=== PATIENT | female | born 1990 | race Caucasian/White ===

== ENCOUNTER 2023-11-06 18:13 | Inpatient (IN) | payer MEDICAID, OTHER ==
[~2023-11-06] VITALS: Ht 152.4 cm; Wt 100.6 kg
[2023-11-06 19:34] LABS: Basophils # (auto) 0 10 ^3/uL (0-0.2); Basophils % (auto) 0.5 % (0.0-2.0); Eosinophils # (auto) 0.1 10 ^3/uL (0-0.8); Eosinophils % (auto) 1.3 % (0.0-7.0); Hematocrit 39.1 % (36.0-46.0); Lymphocytes # (auto) 2.2 10 ^3/uL (0.4-5.4); Lymphocytes % (auto) 33.3 % (10.0-50.0); Mean Corpuscular Hemoglobin 27.7 pg (28.0-32.0); Mean Corpuscular Hgb Conc. 33.2 g/dL (32.0-36.0); Mean Corpuscular Volume 83.4 fL (80.0-100.0); Monocytes # (auto) 0.5 10 ^3/uL (0-1.3); Monocytes % (auto) 8.2 % (0.0-12.0); Neutrophils # (auto) 3.8 10 ^3/uL (1.6-8.6); Neutrophils % (auto) 56.7 % (37.0-80.0); Nucleated Red Blood Cells % 0.1 %; Platelet Count (auto) 264 10^3/uL (140-450); Red Blood Cells 4.69 10^6/uL (4.0-5.20); Red Cell Distribution Width 13.7 % (11.8-14.3); White Blood Cell 6.6 10^3/uL (4.4-10.8)
[2023-11-06] MEDS: SODIUM CHLORIDE 0.9% 1,000 ML IV ONE (19:45)
[2023-11-06] MEDS: PANTOPRAZOLE 40 MG/10 ML VIAL INJ IV ONE (19:45)
[2023-11-06 20:07] LABS: Urine Bacteria FEW /hpf (None Seen); Urine Blood Negative /uL (Negative); Urine Clarity Clear (Clear); Urine Color Light-Yellow (Yellow); Urine Protein, UAD Negative (Negative); Urine Specific Gravity 1.019 (1.001-1.035); Urine Urobilinogen Normal (Negative); Urine WBC 2 /hpf (0 - 5)
[2023-11-06 20:14] LABS: Alanine Aminotransferase 21 U/L (7-40); Albumin 4.5 g/dL (3.2-4.8); Alkaline Phosphatase 88 U/L (46-116); Anion Gap 7 (5-15); Aspartate Aminotransferase 17 U/L (13-40); BUN/Creatinine Ratio 12.7 (10.0-20.0); Bilirubin, Total 0.5 mg/dL (0.2-1.0); Blood Urea Nitrogen 10 mg/dL (9-23); Calcium 9.5 mg/dL (8.7-10.4); Carbon Dioxide 24 mmol/L (20-30); Chloride 106 mmol/L (98-107); Glucose 89 mg/dL (74-106); Potassium 3.3 mmol/L (3.5-5.1); Sodium 137 mmol/L (136-145); Total Protein 7.3 g/dL (5.7-8.2)
[2023-11-06] MEDS: metroNIDAZOLE 500MG/100ML 100 ML IV ONE (21:00)
[2023-11-06 21:35] LABS: INR 1.03 (0.9-1.15); Partial Thromboplastin Time 29.3 SEC (24.5-34.5); Prothrombin Time 10.9 sec (9.3-11.8)
[2023-11-06] MEDS ORDERED: HYDROcodone-ACET 5/325MG TAB PO PRN (22:15)
[2023-11-07] MEDS: CIPROFLOXACIN HCL 500 MG TAB PO ONE (05:39)
[2023-11-07 06:19] VITALS: BP 138/80; PULSE 71; PULSE 77; RESP 16; RESP 20; TEMP 97.8; O2SAT 100; O2SAT 98
[2023-11-07 06:27] LABS: Chloride 108 mmol/L (98-107); Potassium 4.2 mmol/L (3.5-5.1); Sodium 135 mmol/L (136-145)
[2023-11-07] MEDS: metroNIDAZOLE 500MG/100ML 100 ML IV SCH (06:27)
[2023-11-07 06:28] LABS: Anion Gap 4 (5-15); Carbon Dioxide 23 mmol/L (20-30)
[2023-11-07 06:29] LABS: Calcium 9.7 mg/dL (8.7-10.4)
[2023-11-07 06:33] LABS: Blood Urea Nitrogen 7 mg/dL (9-23); Glucose 94 mg/dL (74-106)
[2023-11-07 06:35] LABS: BUN/Creatinine Ratio 8.8 (10.0-20.0)
[2023-11-07 06:50] LABS: Basophils # (auto) 0 10 ^3/uL (0-0.2); Basophils % (auto) 0.5 % (0.0-2.0); Eosinophils # (auto) 0.1 10 ^3/uL (0-0.8); Eosinophils % (auto) 1.2 % (0.0-7.0); Hematocrit 41.7 % (36.0-46.0); Hemoglobin 13.8 g/dL (12.2-16.2); Lymphocytes # (auto) 1.7 10 ^3/uL (0.4-5.4); Lymphocytes % (auto) 26.9 % (10.0-50.0); Mean Corpuscular Hemoglobin 27.9 pg (28.0-32.0); Mean Corpuscular Hgb Conc. 33.1 g/dL (32.0-36.0); Mean Corpuscular Volume 84.2 fL (80.0-100.0); Monocytes # (auto) 0.6 10 ^3/uL (0-1.3); Monocytes % (auto) 9.1 % (0.0-12.0); Neutrophils % (auto) 62.3 % (37.0-80.0); Nucleated Red Blood Cells % 0.1 %; Platelet Count (auto) 252 10^3/uL (140-450); Red Blood Cells 4.95 10^6/uL (4.0-5.20); Red Cell Distribution Width 13.8 % (11.8-14.3); White Blood Cell 6.5 10^3/uL (4.4-10.8)
[2023-11-07 08:09] VITALS: BP 120/75; PULSE 64; RESP 85; TEMP 98.3; O2SAT 97
[2023-11-07] MEDS: PANTOPRAZOLE 40 MG/10 ML VIAL INJ IV SCH (10:19)
[2023-11-07 12:13] VITALS: BP 124/80; PULSE 81; RESP 18; TEMP 98.7; O2SAT 99
[2023-11-07 16:41] VITALS: BP 116/69; PULSE 91; RESP 21; TEMP 98.2; O2SAT 98
[2023-11-07 20:00] VITALS: PULSE 99; RESP 18; O2SAT 96
[2023-11-07 21:00] VITALS: BP 107/76; PULSE 99; RESP 18; TEMP 98.1; O2SAT 96
[2023-11-08] VITALS (7 sets, daily range): BP systolic 99–128; BP diastolic 44–85; PULSE 64–77; RESP 17–20; TEMP 97.4–98.4; O2SAT 96–99
[2023-11-08] MEDS ORDERED: ACETAMINOPHEN 325 MG TAB PO PRN (07:00)
[2023-11-08] MEDS: ACETAMINOPHEN 325 MG TAB PO PRN (09:13)
[2023-11-08] MEDS: MILK OF MAGNESIA 30ML SUSP PO ONE ×2 (09:26)
[2023-11-08 11:32] LABS: Basophils # (auto) 0 10 ^3/uL (0-0.2); Basophils % (auto) 0.5 % (0.0-2.0); Eosinophils # (auto) 0.1 10 ^3/uL (0-0.8); Eosinophils % (auto) 1.1 % (0.0-7.0); Hematocrit 38.3 % (36.0-46.0); Hemoglobin 12.9 g/dL (12.2-16.2); Lymphocytes # (auto) 1.4 10 ^3/uL (0.4-5.4); Lymphocytes % (auto) 23.5 % (10.0-50.0); Mean Corpuscular Hemoglobin 28.1 pg (28.0-32.0); Mean Corpuscular Hgb Conc. 33.7 g/dL (32.0-36.0); Mean Corpuscular Volume 83.5 fL (80.0-100.0); Monocytes # (auto) 0.5 10 ^3/uL (0-1.3); Monocytes % (auto) 8.4 % (0.0-12.0); Neutrophils # (auto) 3.9 10 ^3/uL (1.6-8.6); Neutrophils % (auto) 66.5 % (37.0-80.0); Platelet Count (auto) 234 10^3/uL (140-450); Red Blood Cells 4.59 10^6/uL (4.0-5.20); Red Cell Distribution Width 14.1 % (11.8-14.3); White Blood Cell 5.9 10^3/uL (4.4-10.8)
[2023-11-08 11:45] LABS: Chloride 109 mmol/L (98-107); Sodium 139 mmol/L (136-145)
[2023-11-08 11:46] LABS: Anion Gap 6 (5-15); Carbon Dioxide 24 mmol/L (20-31)
[2023-11-08 11:47] LABS: Calcium 9.3 mg/dL (8.7-10.4)
[2023-11-08 11:51] LABS: Glucose 102 mg/dL (74-106)
[2023-11-08 11:52] LABS: BUN/Creatinine Ratio 9.5 (10.0-20.0); Blood Urea Nitrogen 7 mg/dL (9-23); Magnesium 1.8 mg/dL (1.6-2.6)
[2023-11-08 11:54] LABS: Phosphorus 1.8 mg/dL (2.4-5.1)
[2023-11-08] MEDS: GOLYTELY 4L KIT PO ONE (14:38)
[2023-11-08] MEDS: ONDANSETRON HCL 4 MG/2 ML VIAL IV PRN (18:36)
[2023-11-09 01:34] VITALS: BP 121/71; PULSE 86; RESP 17; TEMP 97.8; O2SAT 98
[2023-11-09] MEDS: MAGNESIUM CITRATE SOLUTION 300 ML BTL PO ONE (03:03)
[2023-11-09 05:00] VITALS: BP 120/72; PULSE 73; RESP 18; TEMP 98.1; O2SAT 100
[2023-11-09] MEDS ORDERED: MAGNESIUM CITRATE SOLUTION 300 ML BTL PO ONE (06:00)
[2023-11-09] MEDS ORDERED: GOLYTELY 4L KIT PO ONE (06:00)
[2023-11-09] MEDS ORDERED: DexAMETHasone SOD PHOS 10MG/1ML VIAL INJ ONE (07:42)
[2023-11-09] MEDS ORDERED: MEPERIDINE HCL (25 MG/ML) 1ML VIAL ONE (07:42)
[2023-11-09] MEDS ORDERED: MIDAZOLAM HCL 2MG/2ML 2ml VIAL (1mg/ml) ONE (07:42)
[2023-11-09] MEDS ORDERED: fentaNYL CITRATE 100 MCG/2 ML VL ONE (07:42)
[2023-11-09] MEDS ORDERED: KETAMINE 50mg/ML 1ml syringe ONE (07:50)
[2023-11-09] MEDS ORDERED: PROPOFOL 10 MG/ML 20 ML IV ONE (07:50)
[2023-11-09 08:03] VITALS: O2SAT 100
[2023-11-09] MEDS ORDERED: ONDANSETRON HCL 4 MG/2 ML VIAL IV ONE (08:15)
[2023-11-09] MEDS ORDERED: MORPHINE SULFATE 4 MG/ML SYR/VIAL IV PRN (08:15)
[2023-11-09] MEDS ORDERED: hydrALAZINE HCL 20 MG/ML VL IV PRN (08:15)
[2023-11-09] MEDS ORDERED: ePHEDrine SULFATE 50 MG/ML AMP IV PRN (08:15)
[2023-11-09] MEDS ORDERED: HYDROmorphone HCL 2 MG/ML VL/or syr IV PRN (08:15)
[2023-11-09] MEDS ORDERED: MIDAZOLAM HCL 2MG/2ML 2ml VIAL (1mg/ml) IV PRN (08:15)
[2023-11-09 09:00] VITALS: BP 139/92; PULSE 83; RESP 18; TEMP 98.1; O2SAT 98
[2023-11-09] MEDS ORDERED: METR-344 PO (09:45)
[2023-11-09] MEDS ORDERED: LEVO500T91 PO (09:45)
[2023-11-09 11:40] VITALS: BP 139/92; PULSE 83; RESP 18; TEMP 98.1; O2SAT 98
== END 2023-11-09 13:21 | disposition home or self-care (01) | DRG 249 ==
LOC: ER 18:13 → OVERFLOW 22:07 → EAST 11-07 06:00
PROVIDERS: ADMIT Nurse Practitioner; ATTEND Family Medicine
PROC: 0DBP8ZX Excision of Rectum, Via Natural or Artificial Opening Endoscopic, Diagnostic (ICD-10-PCS; 2023-11-09)
PROC: 0DBN8ZZ Excision of Sigmoid Colon, Via Natural or Artificial Opening Endoscopic (ICD-10-PCS; 2023-11-09)
PROC: 0DBG8ZX Excision of Left Large Intestine, Via Natural or Artificial Opening Endoscopic, Diagnostic (ICD-10-PCS; principal; 2023-11-09 07:41)
DX: K52.9 Noninfective gastroenteritis and colitis, unspecified (principal); E66.9 Obesity, unspecified; K64.8 Other hemorrhoids; Z68.41 Body mass index [BMI] 40.0-44.9, adult; G43.909 Migraine, unspecified, not intractable, without status migrainosus; K63.5 Polyp of colon
CPT/HCPCS: 36415; 74176; 80048; 80053; 81001; 81025; 82270; 83735; 84100; 85025; 85048; 85610; 85730; 86850; 86900; 86901; 87045; 87177; 87427; 87493; G0378; J1100; J2250; J2405; J2470; J2704; J3490

== ENCOUNTER → 2024-02-18 | Outpatient (CLI) | payer MEDICAID ==
[~2024-02-18] MED LIST: LEVO500T91 PO; METR-344 PO
[2024-02-18 09:22] LABS: Urine Bacteria None Seen /hpf (None Seen)
[2024-02-18 09:52] LABS: Basophils # (auto) 0 10 ^3/uL (0-0.2); Basophils % (auto) 0.5 % (0.0-2.0); Eosinophils # (auto) 0.1 10 ^3/uL (0-0.8); Eosinophils % (auto) 1.4 % (0.0-7.0); Hematocrit 40.8 % (36.0-46.0); Hemoglobin 13.6 g/dL (12.2-16.2); Lymphocytes # (auto) 1.7 10 ^3/uL (0.4-5.4); Lymphocytes % (auto) 27.2 % (10.0-50.0); Mean Corpuscular Hemoglobin 27.7 pg (28.0-32.0); Mean Corpuscular Hgb Conc. 33.3 g/dL (32.0-36.0); Mean Corpuscular Volume 83.2 fL (80.0-100.0); Monocytes # (auto) 0.4 10 ^3/uL (0-1.3); Monocytes % (auto) 6.8 % (0.0-12.0); Neutrophils # (auto) 3.9 10 ^3/uL (1.6-8.6); Neutrophils % (auto) 64.1 % (37.0-80.0); Nucleated Red Blood Cells % 0.1 %; Platelet Count (auto) 277 10^3/uL (140-450); Red Cell Distribution Width 13.8 % (11.8-14.3); White Blood Cell 6.1 10^3/uL (4.4-10.8)
[2024-02-18 10:18] LABS: Alanine Aminotransferase 27 U/L (7-40); Albumin 4.4 g/dL (3.2-4.8); Alkaline Phosphatase 100 U/L (46-116); Anion Gap 8 (5-15); Aspartate Aminotransferase 18 U/L (13-40); BUN/Creatinine Ratio 9.3 (10.0-20.0); Bilirubin, Total 0.3 mg/dL (0.2-1.0); Carbon Dioxide 25 mmol/L (20-31); Cholesterol 158 mg/dL (< 200); Glucose 94 mg/dL (74-106); HDL Cholesterol 55 mg/dL (40-59); Potassium 4.2 mmol/L (3.5-5.1); Sodium 140 mmol/L (136-145); Total Protein 7.3 g/dL (5.7-8.2); Triglycerides 65 mg/dL (< 150)
[2024-02-18 10:36] LABS: Blood Urea Nitrogen 7 mg/dL (9-23); Chloride 107 mmol/L (98-107); LDL Cholesterol 101 mg/dL (< 100)
[2024-02-18 11:07] LABS: Urine Blood Negative /uL (Negative); Urine Clarity Clear (Clear); Urine Color Light-Yellow (Yellow); Urine Protein, UAD Negative (Negative); Urine Specific Gravity 1.022 (1.001-1.035); Urine Squamous Epithelial Cell FEW /hpf (<5); Urine Urobilinogen Normal (Negative); Urine WBC <1 /hpf (0 - 5)
== END | disposition home or self-care (01) ==
LOC: LAB 09:03
PROVIDERS: ATTEND Internal Medicine
DX: E03.9 Hypothyroidism, unspecified (principal); E13.9 Other specified diabetes mellitus without complications
CPT/HCPCS: 36415; 80053; 80061; 81001; 82306; 83036; 83880; 84443; 85025

== ENCOUNTER → 2024-04-09 | Outpatient (CLI) | payer MEDICAID ==
[2024-04-09 09:19] VITALS: BP 111/73; PULSE 72; RESP 17
--- NOTE | 2024-04-09 13:28 | DVHCARD ---
Cardiology Stress Test [place] Treadmill Stress Test [place] Referring MD: MD Kareem Protocol: Robby (without cardiolite) Reason for referral: Chest Pain Target heart Rate:@85%: 158 Percent MPHR: 187 METS: 10.40 Resting Heart rate: 72 Resting Blood Pressure: 111/73 Exercise Heart Rate: 179 Exercise Blood Pressure: 149/65 Baseline EKG: Normal sinus rhythm Stress EKG: Sinus tachycardia Functional Capacity: Good Normal Heart Rate Response: Adequate Blood Pressure Response: Hypertensive Clinical response: Non-ischemic Arrhythmia?: No Cardiolite Injected?: No ST-T Changes: Non/Minimal Probability of Inducible Ische: Low Date of Service: Apr 09, 2024 Billing Provider: SAVANNAH LYNCH Cardiology Common Codes: PROCEDURE ONLY Treadmill w/o Cardiolite: [id number], INTERP, RPT SAVANNAH LYNCH Apr 09, 2024 13:27
--- NOTE | 2024-04-10 12:39 | DVHCARD ---
Cardiology Stress Test [place] Treadmill Stress Test [place] Referring MD: MD Kareem Protocol: Robby Reason for referral: Chest Pain Target heart Rate:@85%: 158 Percent MPHR: 187 METS: 10.40 Resting Heart rate: 72 Resting Blood Pressure: 111/73 Exercise Heart Rate: 179 Exercise Blood Pressure: 149/65 Baseline EKG: Normal sinus rhythm Stress EKG: Sinus tachycardia Functional Capacity: Good Normal Heart Rate Response: Adequate Blood Pressure Response: Hypertensive Clinical response: Non-ischemic Arrhythmia?: No Cardiolite Injected?: No ST-T Changes: Non/Minimal Probability of Inducible Ische: Low Comments: no ecg evidence of ischemia, normal treadmill response Date of Service: Apr 10, 2024 Billing Provider: TAY MILES MD Cardiology Common Codes: NOT BILLABLE TAY MILES MD Apr 10, 2024 12:39
== END | disposition home or self-care (01) ==
LOC: XYW 08:27
PROVIDERS: ATTEND Internal Medicine
DX: R00.0 Tachycardia, unspecified (principal); R07.9 Chest pain, unspecified; R06.02 Shortness of breath; E78.5 Hyperlipidemia, unspecified; F32.A Depression, unspecified
CPT/HCPCS: 93017

== ENCOUNTER 2024-05-19 18:13 | Emergency (ER) | payer MEDICAID ==
[~2024-05-19] VITALS: Ht 152.4 cm; Wt 98.7 kg
[~2024-05-19 18:13] MED LIST changes: +OMEP20TA PO
[2024-05-19 18:33] VITALS: TEMP 99.1
--- NOTE | 2024-05-19 22:35 | DVH ---
CLINICAL INDICATION: TECHNIQUE: XY FACIAL BONES COMPLETE Comparison: None FINDINGS: IMPRESSION: No abnormality demonstrated.
[2024-05-19] MEDS ORDERED: AUG875T PO (22:57)
--- NOTE | 2024-05-19 22:57 | ED.PDOC ---
Back pain HPI HPI Comments Reports left jaw pain that shoots up to her left ear since 1030 today. States pain started while she was earing a sandwich. Some swelling noted to the left side of her face. He has numbness or weakness or any other known injury Chief Complaint: Jaw Pain Time Seen by MD: 18:41 Primary Care Provider: allyn Segovia Notes: Nurses Notes, Medications, Allergies Allergies: Coded Allergies: NO KNOWN ALLERGIES (Unverified , 11/06/23) Home Meds Active Scripts Amoxicillin & Pot Clavulanate (AUGMENTIN TABLET) 875 Mg Tb, 875 MG PO BID for 7 Days, #14 TAB Prov:MITALI GOMEZ [employer] 05/19/24 Omeprazole (Gnp Omeprazole) 20 Mg Tab, 1 TAB PO DAILY for 30 Days, #30 TAB 3 Refills Prov:CHANTELL RODRIGUEZ 04/30/24 Levofloxacin Hemihydrate (LEVAQUIN 500 MG) 500 Mg Tab, 1 TAB PO DAILY, #7 TAB Prov:TAYE PAPPAS MD 11/09/23 Metronidazole (Flagyl) 500 Mg Tab, 1 TAB PO TID, #30 TAB Prov:TAYE PAPPAS MD 11/09/23 Information Source: Patient Mode of Arrival: Ambulatory Past Medical History PAST MEDICAL HISTORY: Denies Surgical History: Denies all surgeries J[employer]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 Family History Family History: Reviewed,noncontributory to illness Social History Smoker: Non-Smoker Alcohol: Denies ETOH Use Drugs: Denies Drug Use Constitutional: denies: chills, diaphoresis, fatigue, fever, malaise, sweats, weakness, others EENTM: denies: blurred vision, double vision, ear bleeding, ear discharge, ear drainage, ear pain, ear ringing, eye pain, eye redness, hearing loss, mouth pain, mouth swelling, nasal discharge, nose bleeding, nose congestion, nose pain, photophobia, tearing, throat pain, throat swelling, voice changes, others Respiratory: denies: cough, hemoptysis, orthopnea, SOB at rest, shortness of breath, SOB with excertion, stridor, wheezing, others Cardiovascular: denies: chest pain, dizzy spells, diaphoresis, Dyspnea on exertion, edema, irregular heart beat, left arm pain, lightheadedness, palpitations, PND, syncope, others Gastrointestinal: denies: abdomen distended, abdominal pain, blood streaked bowels, constipated, diarrhea, dysphagia, difficulty swallowing, hematemesis, melena, nausea, poor appetite, poor fluid intake, rectal bleeding, rectal pain, vomiting, others Genitourinary: denies: abnormal vagina bleeding, burning, dyspareunia, dysuria, flank pain, frequency, hematuria, incontinence, pain, , vagina discharge, urgency, others Neurological: denies: dizziness, fainting, headache, left sided numbness, left sided weakness, numbness, paresthesia, pre-existing deficit, right sided numbness, right sided weakness, seizure, speech problems, tingling, tremors, weakness, others Musculoskeletal: reports: others (Left side jaw pain); denies: back pain, gout, joint pain, joint swelling, muscle pain, muscle stiffness, neck pain Integumetry: denies: bruises, change in color, change in hair/nails, dryness, laceration, lesions, lumps, rash, wounds, others Allergic/Immunocompromised: denies: Difficulty Healing, Frequent Infections, Hives, Itching, others Hematologic/Lymphatic: denies: anemia, blood clots, easy bleeding, easy bruising, swollen glands, others Endocrine: denies: excessive hunger, excessive sweating, excessive thirst, excessive urination, flushing, intolerance to cold, intolerance to heat, unexplained weight gain, unexplained weight loss, others Psychiatric: denies: anxiety, bipolar disorder, depression, hopeless, panic disorder, schizophrenia, sleepless, suicidal, others Physical Exam General Appearance: No Apparent Distress, Normal HEENT: Normal ENT Inspection, Pharynx Normal, TMs Normal, Other (Male tenderness palpated under left side lower jaw no noted adenopathy lesions or abrasions no noted swelling or erythema) Neck: Full Range of Motion, Non-Tender, Normal, Normal Inspection Respiratory: Chest Non-Tender, Lungs Clear, No Accessory Muscle Use, No Respira tory Distress, Normal Breath Sounds Cardiovascular: No Edema, No JVD, No Murmur, No Gallop, Normal Peripheral Pulses, Regular Rate/Rhythm Breast Exam: Deferred Gastrointestinal: No Organomegaly, Non Tender, Soft Genitalia: Deferred Pelvic: Deferred Rectal: Deferred Extremities: Normal capillary refill, Normal inspection, Normal range of motion, Non-tender, No pedal edema Musculoskeletal : Apperance: Normal Neurologic: Alert, jewelry consultant II-XII nml as Tested, No Motor Deficits, Normal Affect, Normal Mood, No Sensory Deficits Cerebellar Function: Normal Reflexes: Normal Skin: Dry, Normal Color, Warm Lymphatic: No Adenopathy Was a procedure done? Was a procedure done?: No Back Pain Differential Dx Differential Diagnosis: Fracture, Musculoskeletal Pain, Strain X-Ray, Labs, Meds, VS Vital Signs Date Time Temp Pulse Resp B/P (MAP) Pulse Ox O2 Delivery O2 Flow Rate FiO2 05/19/24 23:33 67 10 139/90 (106) 97 05/19/24 18:33 99.1 113 20 144/74 (97) 98 99.1 X-Ray, Labs, Meds, VS Comment Facial bones x-ray shows no acute fractures osseous lesions or dislocations. We will start of salivary gland infection/cysts. Trial dose of antibiotics script to the pharmacy. Take medications as prescribed. [id number] Tylenol or Motrin as needed for the pain. Advised patient to follow up with her PCP in 1-2 days. ER return precautions given patient indicates understanding agrees with discharge plan of care. Time of 1ST Reevaluation: 22:51 Reevaluation 1ST: Improved Patient Education/Counseling: Diagnosis, Treatment, Prognosis, Need For Follow Up Family Education/Counseling: No Family Present Departure 1 Departure Time of Disposition: 22:56 Impression: Primary Impression: Jaw pain Disposition: HOME / SELF CARE / HOMELESS Condition: Stable e-Prescriptions Amoxicillin & Pot Clavulanate (AUGMENTIN TABLET) 875 Mg Tb 875 MG PO BID for 7 Days, #14 TAB Prov: MITALI GOMEZ 05/19/24 Discharged With: Self Critical Care Note Critical Care Time?: No Stability Stability form required: MITALI Souza May 19, 2024 22:57
[2024-05-19] MEDS: KETOROLAC TROMETH 60MG/2ML VIAL IM ONE (23:14)
[2024-05-19 23:33] VITALS: BP 139/90; PULSE 67; RESP 10; O2SAT 97
== END 2024-05-19 23:34 | disposition home or self-care (01) ==
LOC: ER 18:13
DX: R68.84 Jaw pain (principal); R20.0 Anesthesia of skin; R22.0 Localized swelling, mass and lump, head
CPT/HCPCS: 96372; 99283; J1885

== ENCOUNTER → 2024-06-04 | Outpatient (CLI) | payer MEDICAID ==
[2024-06-04 11:35] LABS: Anion Gap 7 (5-15); Calcium 9.8 mg/dL (8.7-10.4); Carbon Dioxide 24 mmol/L (20-31); Chloride 106 mmol/L (98-107); Potassium 4.1 mmol/L (3.5-5.1); Sodium 137 mmol/L (136-145)
[2024-06-04 11:41] LABS: BUN/Creatinine Ratio 12.5 (10.0-20.0); Blood Urea Nitrogen 10 mg/dL (9-23); Glucose 85 mg/dL (74-106)
[2024-06-04 11:42] LABS: CRP High Sensitivity 0.69 mg/dL (<1.0)
[2024-06-04 12:19] LABS: Erythrocyte Sedimentation Rate 11 mm/hr (0-20)
== END | disposition home or self-care (01) ==
LOC: LAB 10:41
PROVIDERS: ATTEND Internal Medicine
DX: R06.02 Shortness of breath (principal); R07.9 Chest pain, unspecified
CPT/HCPCS: 36415; 80048; 85652; 86038; 86141

== ENCOUNTER 2024-07-04 18:57 | Emergency (ER) | payer MEDICAID ==
[~2024-07-04] VITALS: Ht 152.4 cm; Wt 93.3 kg
--- NOTE | 2024-07-04 19:38 | ED.PDOC ---
GI ASSESSMENT HPI Comments 34-year-old female who came to ER for of the abdominal pain. Patient states she has been having abdominal pain since yesterday, epigastric, sharp, cramping, intermittent, nonradiating, associated with bouts of nausea and vomiting. States she could not keep anything in. Denies any possibility of Chief Complaint: Abdominal Pain Time Seen by MD: 19:37 Primary Care Provider: allyn Segovia Notes: Nurses Notes Allergies: Coded Allergies: NO KNOWN ALLERGIES (Unverified , 11/06/23) Home Meds Active Scripts Diphenoxylate W/ Atropine (Lomotil) 2.5 Mg Tab, 1 TAB PO QID PRN, #20 TAB Prov:NINI GARRISON MD 07/04/24 Famotidine (PEPCID TABLET) 20 Mg Tb, 1 TAB PO BID PRN, #60 TAB 5 Refills Prov:NINI GARRISON MD 07/04/24 Ondansetron HCl (Ondansetron Hydrochloride) 8 Mg Tab, 8 MG PO Q6HP PRN, #30 TAB Prov:NINI GARRISON MD 07/04/24 Omeprazole (Gnp Omeprazole) 20 Mg Tab, 1 TAB PO DAILY for 30 Days, #30 TAB 3 Refills Prov:CHANTELL RODRIGUEZ 04/30/24 Levofloxacin Hemihydrate (LEVAQUIN 500 MG) 500 Mg Tab, 1 TAB PO DAILY, #7 TAB Prov:TAYE PAPPAS MD 11/09/23 Metronidazole (Flagyl) 500 Mg Tab, 1 TAB PO TID, #30 TAB Prov:TAYE PAPPAS MD 11/09/23 Information Source: Patient Mode of Arrival: Ambulatory Timing: Minutes Duration: Since onset Prehospital treatment: None Quality: Cramping, Sharp Vomitus: Watery Stool: Normal Severity: Moderate Recent: Possible spoiled food Recent Hx of: Abdominal Surgery Pain Location: Epigastric Associated sign and symptoms: Nausea, Vomiting, Abdominal Pain Past Medical History PAST MEDICAL HISTORY: Denies Surgical History: BTL, ROUND UP RING HAND History: No Pertinent ROUND UP RING HAND History Family History Family History: Reviewed,noncontributory to illness Social History Smoker: Non-Smoker Alcohol: Denies ETOH Use Drugs: Denies Drug Use Lives In: Home Constitutional: denies: chills, diaphoresis, fatigue, fever, malaise, sweats, weakness, others EENTM: denies: blurred vision, double vision, ear bleeding, ear discharge, ear drainage, ear pain, ear ringing, eye pain, eye redness, hearing loss, mouth pain, mouth swelling, nasal discharge, nose bleeding, nose congestion, nose pain, photophobia, tearing, throat pain, throat swelling, voice changes, others Respiratory: denies: cough, hemoptysis, orthopnea, SOB at rest, shortness of breath, SOB with excertion, stridor, wheezing, others Cardiovascular: denies: chest pain, dizzy spells, diaphoresis, Dyspnea on exertion, edema, irregular heart beat, left arm pain, lightheadedness, palpitations, PND, syncope, others Gastrointestinal: reports: abdominal pain, nausea, vomiting; denies: abdomen distended, blood streaked bowels, constipated, diarrhea, dysphagia, difficulty swallowing, hematemesis, melena, poor appetite, poor fluid intake, rectal bleeding, rectal pain, others Genitourinary: denies: abnormal vagina bleeding, burning, dyspareunia, dysuria, flank pain, frequency, hematuria, incontinence, pain, , vagina discharge, urgency, others Neurological: denies: dizziness, fainting, headache, left sided numbness, left sided weakness, numbness, paresthesia, pre-existing deficit, right sided numbness, right sided weakness, seizure, speech problems, tingling, tremors, weakness, others Musculoskeletal: denies: back pain, gout, joint pain, joint swelling, muscle pain, muscle stiffness, neck pain, others Integumetry: denies: bruises, change in color, change in hair/nails, dryness, laceration, lesions, lumps, rash, wounds, others Allergic/Immunocompromised: denies: Difficulty Healing, Frequent Infections, Hives, Itching, others Hematologic/Lymphatic: denies: anemia, blood clots, easy bleeding, easy bru ising, swollen glands, others Endocrine: denies: excessive hunger, excessive sweating, excessive thirst, e xcessive urination, flushing, intolerance to cold, intolerance to heat, unexplained weight gain, unexplained weight loss, others Psychiatric: denies: anxiety, bipolar disorder, depression, hopeless, panic disorder, schizophrenia, sleepless, suicidal, others Physical Exam General Appearance: No Apparent Distress, Normal HEENT: Normal ENT Inspection, Pharynx Normal, TMs Normal Neck: Full Range of Motion, Non-Tender, Normal, Normal Inspection Respiratory: Chest Non-Tender, Lungs Clear, No Accessory Muscle Use, No Re spiratory Distress, Normal Breath Sounds Cardiovascular: No Edema, No JVD, No Murmur, No Gallop, Normal Peripheral Pulses, Regular Rate/Rhythm Breast Exam: Deferred Gastrointestinal: Epigastric, No Organomegaly, No Pulsatile Mass, Normal Bowel Sounds, Soft, Tenderness Genitalia: Deferred Pelvic: Deferred Rectal: Deferred Extremities: No calf tenderness, Normal capillary refill, Normal inspection, Normal range of motion, Non-tender, No pedal edema Musculoskeletal : Apperance: Normal Neurologic: Alert, police surgeon II-XII nml as Tested, No Motor Deficits, Normal Affect, Normal Mood, No Sensory Deficits Cerebellar Function: Normal Reflexes: Normal Skin: Dry, Normal Color, Warm Lymphatic: No Adenopathy Was a procedure done? Was a procedure done?: No GI differential Dx Differential Diagnosis: Diverticular disease, Gastritis/PUD, Gastroenteritis, Pancreatitis, UTI, Dehydration X-Ray, Labs, Meds, VS Vital Signs Date Time Temp Pulse Resp B/P (MAP) Pulse Ox O2 Delivery O2 Flow Rate FiO2 07/04/24 22:46 98.3 80 19 123/70 (87) 97 98.3 07/04/24 21:50 80 19 123/70 07/04/24 20:57 113 18 114/70 07/04/24 20:30 98.2 113 18 114/70 (85) 100 98.2 07/04/24 20:30 113 18 100 Room Air* 0 21 07/04/24 19:27 97.7 120 20 125/102 (110) 99 97.7 Lab Test 07/04/24 19:47 Range/Units White Blood Count 14.5 H 4.4-10.8 10^3/uL Red Blood Count 5.66 H 4.0-5.20 10^6/uL Hemoglobin 15.5 12.2-16.2 g/dL Hematocrit 46.9 H 36.0-46.0 % Mean Corpuscular Volume 82.9 80.0-100.0 fL Mean Corpuscular Hemoglobin 27.4 L 28.0-32.0 pg Mean Corpuscular Hemoglobin Concent 33.0 32.0-36.0 g/dL Red Cell Distribution Width 13.4 11.8-14.3 % Platelet Count 308 140-450 10^3/uL Mean Platelet Volume 8.2 6.9-10.8 fL Neutrophils (%) (Auto) 83.6 H 37.0-80.0 % Lymphocytes (%) (Auto) 11.0 10.0-50.0 % Monocytes (%) (Auto) 5.2 0.0-12.0 % Eosinophils (%) (Auto) 0.0 0.0-7.0 % Basophils (%) (Auto) 0.2 0.0-2.0 % Neutrophils # (Auto) 12.1 H 1.6-8.6 10 ^3/uL Lymphocytes # (Auto) 1.6 0.4-5.4 10 ^3/uL Monocytes # (Auto) 0.8 0-1.3 10 ^3/uL Eosinophils # (Auto) 0 0-0.8 10 ^3/uL Basophils # (Auto) 0 0-0.2 10 ^3/uL Nucleated Red Blood Cells 0.0 % Sodium Level 140 136-145 mmol/L Potassium Level 4.0 3.5-5.1 mmol/L Chloride Level 103 98-107 mmol/L Carbon Dioxide Level 24 20-31 mmol/L Anion Gap 13 5-15 Blood Urea Nitrogen 14 9-23 mg/dL Creatinine 0.85 0.550-1.02 mg/dL Glomerular Filtration Rate Calc 92 >90 mL/min BUN/Creatinine Ratio 16.5 10.0-20.0 Serum Glucose 101 74-106 mg/dL Calcium Level 10.3 8.7-10.4 mg/dL Total Bilirubin 0.8 0.2-1.0 mg/dL Aspartate Amino Transferase (AST) 15 13-40 U/L Alanine Aminotransferase (ALT) 18 7-40 U/L Alkaline Phosphatase 107 46-116 U/L Total Protein 8.3 H 5.7-8.2 g/dL Albumin 5.3 H 3.2-4.8 g/dL Lipase 61 H 12-53 U/L Beta HCG, Quantitative 0.3 L 1.5-4.2 mIU/mL Current Medications Medications (Trade) Dose Ordered Sig/Fela Route Start Time Stop Time Status Last Admin Sodium Chloride 1,000 ml @ 1,000 mls/hr Q1H ONCE IVB 07/04/24 19:30 07/04/24 20:29 DC 07/04/24 20:44 Ondansetron HCl (Zofran) 4 mg ONCE ONCE IV 07/04/24 19:30 07/04/24 19:31 DC 07/04/24 20:44 Famotidine (Pepcid Injection) 20 mg ONCE ONCE IV 07/04/24 19:30 07/04/24 19:31 DC 07/04/24 20:44 Morphine Sulfate 4 mg ONCE ONCE IV 07/04/24 21:00 07/04/24 21:01 DC 07/04/24 20:57 Time of 1ST Reevaluation: 19:35 Reevaluation 1ST: Unchanged Patient Education/Counseling: Diagnosis, Treatment Family Education/Counseling: No Family Present Departure 1 Departure Time of Disposition: 21:30 Impression: Primary Impression: Abdominal cramping Additional Impression: Nausea and vomiting Disposition: 01 HOME / SELF CARE / HOMELESS Condition: Stable e-Prescriptions Diphenoxylate W/ Atropine (Lomotil) 2.5 Mg Tab 1 TAB PO QID PRN, #20 TAB Prov: NINI GARRISON MD 07/04/24 Famotidine (PEPCID TABLET) 20 Mg Tb 1 TAB PO BID PRN, #60 TAB 5 Refills Prov: NINI GARRISON MD 07/04/24 Ondansetron HCl (Ondansetron Hydrochloride) 8 Mg Tab 8 MG PO Q6HP PRN, #30 TAB Prov: NINI GARRISON MD 07/04/24 Discharged With: Self Critical Care Note Critical Care Time?: No Stability Stability form required: No Heart Score Heart Score: Heart Score Response (Comments) Value History N/A 0 EKG N/A 0 Age N/A 0 Risk Factors N/A 0 Troponin N/A 0 Total 0 I personally scribed for NINI GARRISON MD ([email or web address]) on 07/04/24 at 19:38. Electronically submitted by Kory Jose ([email or web address]). NINI GARRISON MD July 04, 2024 19:38
[2024-07-04 20:06] LABS: Basophils # (auto) 0 10 ^3/uL (0-0.2); Basophils % (auto) 0.2 % (0.0-2.0); Eosinophils # (auto) 0 10 ^3/uL (0-0.8); Hematocrit 46.9 % (36.0-46.0); Hemoglobin 15.5 g/dL (12.2-16.2); Lymphocytes # (auto) 1.6 10 ^3/uL (0.4-5.4); Mean Corpuscular Hemoglobin 27.4 pg (28.0-32.0); Mean Corpuscular Volume 82.9 fL (80.0-100.0); Monocytes # (auto) 0.8 10 ^3/uL (0-1.3); Monocytes % (auto) 5.2 % (0.0-12.0); Neutrophils # (auto) 12.1 10 ^3/uL (1.6-8.6); Neutrophils % (auto) 83.6 % (37.0-80.0); Platelet Count (auto) 308 10^3/uL (140-450); Red Blood Cells 5.66 10^6/uL (4.0-5.20); Red Cell Distribution Width 13.4 % (11.8-14.3); White Blood Cell 14.5 10^3/uL (4.4-10.8)
[2024-07-04 20:19] LABS: Alanine Aminotransferase 18 U/L (7-40); Alkaline Phosphatase 107 U/L (46-116); Anion Gap 13 (5-15); Aspartate Aminotransferase 15 U/L (13-40); BUN/Creatinine Ratio 16.5 (10.0-20.0); Bilirubin, Total 0.8 mg/dL (0.2-1.0); Blood Urea Nitrogen 14 mg/dL (9-23); Calcium 10.3 mg/dL (8.7-10.4); Carbon Dioxide 24 mmol/L (20-31); Chloride 103 mmol/L (98-107); Glucose 101 mg/dL (74-106); Sodium 140 mmol/L (136-145)
[2024-07-04 20:21] LABS: Albumin 5.3 g/dL (3.2-4.8); Lipase 61 U/L (12-53); Total Protein 8.3 g/dL (5.7-8.2)
[2024-07-04 20:30] VITALS: PULSE 113; RESP 18; O2SAT 100
[2024-07-04] MEDS: FAMOTIDINE (10MG/ML) 2ML VL IV ONE (20:44)
[2024-07-04] MEDS: SODIUM CHLORIDE 0.9% 1,000 ML IVB ONE (20:44)
[2024-07-04] MEDS: ONDANSETRON HCL 4 MG/2 ML VIAL IV ONE (20:44)
[2024-07-04] MEDS: MORPHINE SULFATE 4 MG/ML SYR/VIAL IV ONE (20:57)
--- NOTE | 2024-07-04 21:59 | DVH ---
ABDOMINAL ULTRASOUND CLINICAL HISTORY: abd pain TECHNIQUE: Multiple grayscale and color Doppler ultrasound images were obtained of the abdomen. WID: COMPARISON: None FINDINGS: Liver and Biliary System: Homogeneous echotexture, normal size measuring 12.84 cm. No focal hepati c observations. No intrahepatic bile duct dilatation. The common duct measures 0. 4 cm at the maximus hepatis. The gallbladder is normal caliber with borderline wall thickening measuring 3.4 mm. Pancreas: Visualized portions are unremarkable. Kidneys: The right kidney is 10.3 cm . No hydronephrosis, increased echogenicity, shadowing stone, or focal lesion. IMPRESSION: Normal caliber gallbladder with borderline wall thickening. Sonographic headley's sign is negative, g oing against acute cholecystitis.
[2024-07-04] MEDS ORDERED: ONDA-180 PO (22:08)
[2024-07-04] MEDS ORDERED: FAMO20TA10 PO (22:08)
[2024-07-04] MEDS ORDERED: DIPH2.5T73 PO (22:08)
[2024-07-04 22:46] VITALS: BP 123/70; PULSE 80; RESP 19; TEMP 98.3; O2SAT 97
== END 2024-07-04 22:50 | disposition home or self-care (01) ==
LOC: ER 18:57
DX: R10.84 Generalized abdominal pain (principal); R11.2 Nausea with vomiting, unspecified; Z79.899 Other long term (current) drug therapy; Z98.51 Tubal ligation status
CPT/HCPCS: 36415; 76705; 80053; 83690; 84702; 85025; 96361; 96374; 96375; 99285; J2270; J2405; J3490; J7030

== ENCOUNTER 2024-11-21 11:01 | Day surgery (SDC) | payer MEDICAID ==
[2024-11-14 11:32] LABS: Hematocrit 39.3 % (36.0-46.0); Hemoglobin 13.1 g/dL (12.2-16.2); Mean Corpuscular Hemoglobin 27.9 pg (28.0-32.0); Mean Corpuscular Volume 84.0 fL (80.0-100.0); Nucleated Red Blood Cells % 0.0 %
[2024-11-14 11:33] LABS: Urine Protein, UAD Negative (Negative)
[2024-11-14 11:48] LABS: Alanine Aminotransferase 17 U/L (7-40); Albumin 4.5 g/dL (3.2-4.8); Alkaline Phosphatase 73 U/L (46-116); Anion Gap 9 (5-15); BUN/Creatinine Ratio 15.1 (10.0-20.0); Bilirubin, Total 0.6 mg/dL (0.2-1.0); Blood Urea Nitrogen 11 mg/dL (9-23); Calcium 9.3 mg/dL (8.7-10.4); Carbon Dioxide 26 mmol/L (20-31); Chloride 106 mmol/L (98-107); Glucose 83 mg/dL (74-106); Potassium 4.0 mmol/L (3.5-5.1); Sodium 141 mmol/L (136-145); Total Protein 7.4 g/dL (5.7-8.2)
[2024-11-14 11:50] LABS: INR 1.03 (0.9-1.15); Partial Thromboplastin Time 28.8 SEC (24.5-34.5); Prothrombin Time 10.9 sec (9.3-11.8)
[~2024-11-21] VITALS: Ht 152.4 cm; Wt 86.2 kg
[~2024-11-21 11:01] MED LIST changes: +DIPH2.5T73 PO; +FAMO20TA10 PO; +ONDA-180 PO
[2024-11-21] MEDS ORDERED: LIDOCAINE VISCOUS 2% 15ML UD ONE (12:29)
[2024-11-21] MEDS ORDERED: fentaNYL CITRATE 100 MCG/2 ML VL ONE (12:57)
[2024-11-21] MEDS ORDERED: MIDAZOLAM HCL 2MG/2ML 2ml VIAL (1mg/ml) ONE (12:57)
[2024-11-21 13:05] VITALS: PULSE 91; RESP 13; TEMP 97.5; O2SAT 98
[2024-11-21] MEDS ORDERED: PROPOFOL 10 MG/ML 20 ML IV ONE (13:06)
--- NOTE | 2024-11-21 13:08 | DVHOP2 ---
Operative Report DATE OF OPERATION: 11/21/24 PROCEDURE: Upper Endoscopy with biopsy. PREOPERATIVE INDICATION: The patient is a 34 -year-old female undergoing endoscopy for chronic GERD and dyspepsia POSTOPERATIVE DIAGNOSES: 1. 1-2 cm sliding-type hiatal hernia with grade B linear erosive esophagitis and a linear ulcer extending into the distal 2-3 cm of the esophagus from which biopsies were obtained 2. Cdyj-af-dwxtofxq duodenitis with effacement of the duodenal mucosa from which biopsies were obtained 3. Minimal gastritis otherwise normal examination upto the 2nd and 3rd part of the duodenum PROCEDURE PERFORMED BY: Jose Miguel Wiley GI NURSE: Marina SCOPE: Olympus videoendoscope. ASA CLASS: 2 PREOPERATIVE MEDICATIONS: Mac sedation, Dr. Correa PROCEDURE IN DETAIL: After obtaining an informed consent, the patient was placed on left lateral decubitus position. The patient was then sedated with the above medications. A bite block was placed between her teeth. The endoscope was then passed through the oropharynx, into the esophagus, and through the stomach and pylorus up to the second and third part of the duodenum. The endoscope was then withdrawn. The 2nd and 3rd part of the duodenal and the duodenal bulb showed duodenitis with effacement of the duodenal mucosa. Duodenal biopsies were obtained. The pre-pyloric area antrum and body was essentially normal . Gastric biopsies were obtained Retroflexion the fundus cardia and angularis were normal. The endoscope was then withdrawn into the distal esophagus Patient had a 2 cm sliding-type hiatal hernia with slightly irregular squamocolumnar junction grade B linear erosive esophagitis GE junction biopsies were obtained. The remaining distal and proximal esophagus and oropharynx were unremarkable The patient tolerated the procedure well without difficulty. COMPLICATIONS : None SPECIMENS: Duodenal biopsies Gastric biopsies GE junction biopsies DISPOSITION: Stable D/C to home PLAN: 1. Await for biopsy result 2. Will place pt on Protonix 40 mg p.o. daily 3. Resume GI soft diet advance as tolerated 4. Lifestyle and dietary modifications for GERD 5. Outpatient follow up with me in 2-4 weeks to review results and discuss further management JOSE MIGUEL WILEY MD Nov 21, 2024 13:08
[2024-11-21 13:35] VITALS: BP 108/58; PULSE 69; RESP 16; O2SAT 98
== END 2024-11-21 13:50 | disposition home or self-care (01) ==
LOC: SUR 11:01
PROVIDERS: ATTEND Internal Medicine Gastroenterology
DX: K29.50 Unspecified chronic gastritis without bleeding (principal); K29.80 Duodenitis without bleeding; K44.9 Diaphragmatic hernia without obstruction or gangrene; K21.00 Gastro-esophageal reflux disease with esophagitis, without bleeding; Z98.891 History of uterine scar from previous surgery; G47.33 Obstructive sleep apnea (adult) (pediatric); F32.A Depression, unspecified; E66.01 Morbid (severe) obesity due to excess calories; Z68.41 Body mass index [BMI] 40.0-44.9, adult; Z98.890 Other specified postprocedural states
CPT/HCPCS: 36415; 43239; 80053; 81001; 81025; 85025; 85610; 85730; 88305; 88313; 88342; J1100; J2250; J2704; J3010; J7030

== ENCOUNTER 2024-12-29 09:00 | Outpatient (CLI) | payer MEDICAID ==
[2024-12-29 09:26] LABS: Hematocrit 39.8 % (36.0-46.0); Hemoglobin 13.3 g/dL (12.2-16.2); Mean Corpuscular Hemoglobin 27.9 pg (28.0-32.0); Mean Corpuscular Volume 83.6 fL (80.0-100.0); Nucleated Red Blood Cells % 0.0 %
[2024-12-29 09:44] LABS: Alanine Aminotransferase 12 U/L (7-40); Albumin 4.4 g/dL (3.2-4.8); Alkaline Phosphatase 82 U/L (46-116); Anion Gap 10 (5-15); BUN/Creatinine Ratio 10.5 (10.0-20.0); Calcium 9.5 mg/dL (8.7-10.4); Carbon Dioxide 26 mmol/L (20-31); Chloride 106 mmol/L (98-107); Glucose 83 mg/dL (74-106); Potassium 4.3 mmol/L (3.5-5.1); Sodium 142 mmol/L (136-145); Total Protein 7.3 g/dL (5.7-8.2)
[2024-12-29 09:45] LABS: Bilirubin, Total 0.4 mg/dL (0.2-1.0)
[2024-12-29 09:53] LABS: Blood Urea Nitrogen 8 mg/dL (9-23)
[2024-12-29 11:10] LABS: Iron 78.0 ug/dL (50-170); Total Iron Binding Capacity 302.0 ug/dL (250-425)
== END 2024-12-29 17:00 | disposition home or self-care (01) ==
LOC: LAB 09:00
PROVIDERS: ATTEND Licensed Practical Nurse
DX: E66.01 Morbid (severe) obesity due to excess calories (principal); R53.83 Other fatigue
CPT/HCPCS: 36415; 80053; 82728; 83540; 83550; 85025